=== PATIENT | female | born 1970 | race Caucasian/White ===

== ENCOUNTER 2017-08-29 11:59 | Emergency (ER) | payer BC ==
[2017-08-29 12:18] VITALS: BP 136/90
--- NOTE | 2017-08-29 13:55 | UC ---
Taqueria Mcleod Gabriel, scribed for Bob Fairchild MD on 08/29/17 at 1205 . Cardiac HPI - HPI Summary HPI Summary: This patient is a 47 year old F presenting to [facility] [place] with a chief complaint of CP that began this morning while she was eating breakfast and resolved 30 minutes later. She describes the sensation as feeling like there was a ton of bricks on her chest. She denies nausea, vomiting, diaphoresis, SOB, and dizziness. The pain was located in the middle of her chest and did no radiate. At this time there is no CP. Hx of chronic renal failure and hypothyroidism. - History of Current Complaint Stated Complaint: CHEST PAIN Time Seen by Provider: 08/29/17 12:01 Hx Obtained From: Patient Hx Last Menstrual Period: 12/08/2013 Onset/Duration: Lasting Hours, Still Present Timing: Constant Initial Severity: Moderate Current Severity: Moderate Pain Intensity: 6 Chest Pain Location: Diffuse Associated Signs & Symptoms: Positive: Negative - vomiting, diaphoresis, SOB, and dizziness. - Allergy/Home Medications Allergies/Adverse Reactions: Allergies Allergy/AdvReac Type Severity Reaction Status Date / Time No Known Allergies Allergy Verified 08/29/17 12:45 Home Medications: Home Medications Levothyroxine Sodium [Levoxyl] 1 tab PO DAILY 08/29/17 [History Confirmed ] PMH/Surg Hx/FS Hx/Imm Hx Endocrine History: Hypothyroidism GI/ History: Renal Disease Other History Of: Negative For: Hepatitis C, Anticoagulant Therapy - Surgical History Surgical History: None - Family History Known Family History: Negative: Renal Disease, Respiratory Disease, Seizure Disorder - Social History Alcohol Use: Occasionally Substance Use Type: None Smoking Status (MU): Never Smoked Tobacco Review of Systems All Other Systems Reviewed And Are Negative: Yes Physical Exam - Summary Physical Exam Summary: VITAL SIGNS: Reviewed. GENERAL: Patient is a well-developed and nourished female who is lying comfortable in the stretcher. Patient is not in any acute respiratory distress. HEAD AND FACE: Normocephalic EYES: PERRLA, EOMI x 2. EARS: Hearing grossly intact. MOUTH: Oropharynx within normal limits. NECK: Supple, trachea is midline, no adenopathy, no JVD, no carotid bruit. CHEST: Symmetric, no tenderness at palpation LUNGS: Clear to auscultation bilaterally. No wheezing or crackles. CVS: Regular rate and rhythm, S1 and S2 present, no murmurs or gallops appreciated. ABDOMEN: Soft, non-tender. Bowel sounds are normal. No abdominal abnormal pulsations. EXTREMITIES: Full ROM in all major joints, no edema, no cyanosis or clubbing. NEURO: Alert and oriented x 3. No acute neurological deficits. Speech is normal and follows commands. SKIN: Dry and warm Triage Information Reviewed: Yes Vital Signs: Initial Vital Signs Temp 99.3 F 08/29/17 12:04 Pulse 82 08/29/17 12:04 Resp 16 08/29/17 12:04 BP 123/83 08/29/17 12:04 Pulse Ox 98 08/29/17 12:04 Vital Signs Reviewed: Yes Diagnostics - EKG Cardiac Rate: NL Cardiac Rhythm: Sinus: Normal - at 84 BPM , Other Rhythm: Normal - no ST elevations, nml axis - Assessment/Plan Course Of Treatment: Patient here with atypical chest pain. Because of the presentation symptoms and her comorbidities I decided to recommend for the patient to go to the emergency department for further workup and management. At this point the patient is hemodynamically stable and she declines ambulance transport. - Clinical Impression Provider Diagnoses: CHEST PAIN Discharge - Sign-Out/Discharge Documenting (check all that apply): Discharge/Admit/Transfer - Discharge Plan Condition: Stable Disposition: HOME Patient Education Materials: Chest Pain (ED) Referrals: Abbie Bradley [Primary Care Provider] - Additional Instructions: Patient was discharged to the emergency department for further workup and assessment. The patient declined ambulance transportation. - Billing Disposition and Condition Condition: STABLE Disposition: HOME The documentation as recorded by the Taqueria chand Gabriel accurately reflects the service I personally performed and the decisions made by , Bob Fairchild MD.
== END 2017-08-29 12:18 | disposition home or self-care (01) ==
LOC: UCEAST 11:59
DX: R07.89 Other chest pain (principal); E03.9 Hypothyroidism, unspecified; N28.9 Disorder of kidney and ureter, unspecified
CPT/HCPCS: 93005; 99212; G0463

== ENCOUNTER → 2017-08-29 12:43 | Emergency (ER) | payer BC ==
[~2017-08-29 12:43] MED LIST: NS 0.9% 1000 ML* 1,000 ML IV SCH
--- NOTE | 2017-08-29 16:03 | RAD ---
INDICATION: Chest pain. COMPARISON: Comparison is made with a prior chest x-ray study from October 27, 2002. TECHNIQUE: A portable view of the chest was obtained. FINDINGS: Cardiac and mediastinal contours appear to be within normal limits. The lungs are are clear. No pleural effusion or pneumothorax is seen. IMPRESSION: NO EVIDENCE FOR ACUTE DISEASE.
[2017-08-29 16:11] LABS: ABS Basophils 0.1 10^3/ul (0-0.2); ABS Eosinophils 0.3 10^3/ul (0-0.6); ABS Lymphocytes 2.3 10^3/ul (1.0-4.8); ABS Monocytes 0.7 10^3/ul (0-0.8); ABS Neutrophils 6.4 10^3/ul (1.5-7.7); ABS Nucleated RBC 0 10^3/ul; Eosinophil % 2.7 % (0-6); Hematocrit 40 % (35-47); Hemoglobin 13.8 g/dl (12.0-16.0); Lymphocyte % 23.3 % (25-47); Mean Corpuscular HGB Conc 34 g/dl (31-36); Mean Corpuscular Hemoglobin 30 pg (27-31); Mean Corpuscular Volume 89 fL (80-97); Mean Platelet Volume 7.5 um3 (7.4-10.4); Nucleated Red Blood Cells % 0; Platelet Count 295 10^3/ul (150-450); Red Blood Count 4.56 10^6/ul (4.0-5.4); Red Cell Distribution Width 13 % (10.5-15); White Blood Count 9.7 10^3/ul (3.5-10.8)
[2017-08-29 16:31] LABS: EGFR Non-African American 50.5 (>60)
[2017-08-29 17:56] LABS: INR 0.88 (0.77-1.02)
[2017-08-29 18:34] VITALS: BP 121/80
--- NOTE | 2017-08-29 18:40 | ED ---
Laura Mcleod Tenzin, scribed for William Guadarrama MD on 08/29/17 at 1733 . HPI Chest Pain - HPI Summary HPI Summary: Pt is a 47 years old female sent to ED from [facility] with complaints of chest pain that started this morning. Prior to the onset, the pt was eating her bagel. She described that she felt as if the bagel was stuck in her throat. She also describes the chest pain as a hot flash. The patient also reports hand swelling a couple days ago that resolved. She denies pain when swallowing, nausea, and shortness of breath. The chest pain and the discomfort in her throat have mostly subsided now. She has a past medical history of thyroid and kidney disease. - History of Current Complaint Chief Complaint: EDChestPainROMI Time Seen by Provider: 08/29/17 16:10 Hx Obtained From: Patient Hx Last Menstrual Period: 08/21/17 Onset/Duration: Still Present Timing: Constant Initial Severity: Moderate Current Severity: Mild Pain Intensity: 3 Pain Scale Used: 0-10 Numeric Character: Other: - hot flashes Associated Signs and Symptoms: Positive: Chest Pain, Other: - feels as something is"stuck in her throat". Negative: Shortness of Breath, Nausea - Allergy/Home Medications Allergies/Adverse Reactions: Allergies Allergy/AdvReac Type Severity Reaction Status Date / Time No Known Allergies Allergy Verified 08/29/17 12:45 Home Medications: Home Medications Levothyroxine TAB* [Synthroid TAB*] 75 mcg PO DAILY 08/29/17 [History Confirmed 08/29/17] PMH/Surg Hx/FS Hx/Imm Hx Endocrine/Hematology History: Denies: Hx Diabetes, Hx Thyroid Disease Cardiovascular History: Denies: Hx Hypertension Respiratory History: Denies: Hx Asthma, Hx Chronic Obstructive Pulmonary Disease (COPD) GI History: Denies: Hx Ulcer - Cancer History Hx Chemotherapy: No Hx Radiation Therapy: No - Surgical History Surgery Procedure, Year, and Place: ectopic 2002. opherectomy, right sided Infectious Disease History: No Infectious Disease History: Denies: Hx Hepatitis, Hx Human Immunodeficiency Virus (HIV), Traveled Outside the [place] in Last 30 Days - Family History Known Family History: Negative: Blood Disorder - Social History Alcohol Use: Occasionally Substance Use Type: Reports: None Smoking Status (MU): Never Smoked Tobacco Review of Systems Positive: Other - feels as if "something is stuck in her throat" Positive: Chest Pain Negative: Shortness Of Breath Negative: Nausea All Other Systems Reviewed And Are Negative: Yes Physical Exam - Summary Physical Exam Summary: Appearance: The patient is well-nourished in no acute distress and in no acute pain. Skin: The skin is warm and dry and skin color reflects adequate perfusion. HEENT: The head is normocephalic and atraumatic. The pupils are equal and reactive. The conjunctivae are clear and without drainage. Nares are patent and without drainage. Mouth reveals moist mucous membranes and the throat is without erythema and exudate. The external ears are intact. The ear canals are patent and without drainage. The tympanic membranes are intact. Neck: the neck is supple with full range of motion and non-tender. There are no carotid bruits. There is no neck vein distension. Respiratory: Chest is non-tender. Lungs are clear to auscultation and breath sounds are symmetrical and equal. Cardiovascular: Heart is regular rate and rhythm. There is no murmur or rub auscultated. There is no peripheral edema and pulses are symmetrical and equal. Abdomen: The abdomen is soft and non-tender. There are normal bowel sounds heard in all four quadrants and there is no organomegaly palpated. Musculoskeletal: There is no back tenderness noted. Extremities are non-tender with full range of motion. There is good capillary refill. There is no peripheral edema or calf tenderness elicited. Neurological: Patient is alert and oriented to person, place and time. The patient has symmetrical motor strength in all four extremities. Cranial nerves are grossly intact. Deep tendon reflexes are symmetrical and equal in all four extremities. Psychiatric: The patient has an appropriate affect and does not exhibit any anxiety or depression. Triage Information Reviewed: Yes Vital Signs On Initial Exam: Initial Vitals Temp Pulse Resp BP Pulse Ox 98.1 F 84 16 136/80 97 08/29/17 12:45 08/29/17 12:45 08/29/17 12:45 08/29/17 12:45 08/29/17 12:45 Vital Signs Reviewed: Yes Diagnostics - Vital Signs Vital Signs Temp Pulse Resp BP Pulse Ox 08/29/17 12:45 98.1 F 84 16 136/80 97 - Laboratory Lab Results: Lab Results 08/29/17 08/29/17 08/29/17 Range/Units 16:00 16:00 16:00 WBC 9.7 (3.5-10.8) 10^3/ul RBC 4.56 (4.0-5.4) 10^6/ul Hgb 13.8 (12.0-16.0) g/dl Hct 40 (35-47) % MCV 89 (80-97) fL MCH 30 (27-31) pg MCHC 34 (31-36) g/dl RDW 13 (10.5-15) % Plt Count 295 (150-450) 10^3/ul MPV 7.5 (7.4-10.4) um3 Neut % (Auto) 66.1 (38-83) % Lymph % (Auto) 23.3 L (25-47) % [place] % (Auto) 6.9 (0-7) % Eos % (Auto) 2.7 (0-6) % Baso % (Auto) 1.0 (0-2) % Absolute Neuts (auto) 6.4 (1.5-7.7) 10^3/ul Absolute Lymphs (auto) 2.3 (1.0-4.8) 10^3/ul Absolute Monos (auto) 0.7 (0-0.8) 10^3/ul Absolute Eos (auto) 0.3 (0-0.6) 10^3/ul Absolute Basos (auto) 0.1 (0-0.2) 10^3/ul Absolute Nucleated RBC 0 10^3/ul Nucleated RBC % 0 Sodium 137 L (139-145) mmol/L Potassium 4.1 (3.5-5.0) mmol/L Chloride 104 (101-111) mmol/L Carbon Dioxide 26 (22-32) mmol/L Anion Gap 7 (2-11) mmol/L BUN 17 (6-24) mg/dL Creatinine 1.16 H (0.51-0.95) mg/dL Est GFR ( Amer) 65.0 (>60) Est GFR (Non-Af Amer) 50.5 (>60) BUN/Creatinine Ratio 14.7 (8-20) Glucose 93 (70-100) mg/dL Lactic Acid 1.4 (0.5-2.0) mmol/L Calcium 9.7 (8.6-10.3) mg/dL Magnesium 1.8 L (1.9-2.7) mg/dL Total Bilirubin 0.40 (0.2-1.0) mg/dL AST 16 (13-39) U/L ALT 12 (7-52) U/L Alkaline Phosphatase 84 (34-104) U/L Total Creatine Kinase 69 (10-223) U/L CK-MB (CK-2) 37.6 H (0.6-6.3) ng/mL Troponin I 0.00 (<0.04) ng/mL C-Reactive Protein 7.43 H (< 5.00) mg/L B-Natriuretic Peptide ( - 100) pg/mL Total Protein 7.9 (6.4-8.9) g/dL Albumin 4.2 (3.2-5.2) g/dL Globulin 3.7 (2-4) g/dL Albumin/Globulin Ratio 1.1 (1-3) Lipase 25 (11.0-82.0) U/L TSH 1.23 (0.34-5.60) mcIU/mL Beta HCG, Quant < 0.60 mIU/mL 08/29/17 08/29/17 Range/Units 16:00 16:00 WBC (3.5-10.8) 10^3/ul RBC (4.0-5.4) 10^6/ul Hgb (12.0-16.0) g/dl Hct (35-47) % MCV (80-97) fL MCH (27-31) pg MCHC (31-36) g/dl RDW (10.5-15) % Plt Count (150-450) 10^3/ul MPV (7.4-10.4) um3 Neut % (Auto) (38-83) % Lymph % (Auto) (25-47) % [place] % (Auto) (0-7) % Eos % (Auto) (0-6) % Baso % (Auto) (0-2) % Absolute Neuts (auto) (1.5-7.7) 10^3/ul Absolute Lymphs (auto) (1.0-4.8) 10^3/ul Absolute Monos (auto) (0-0.8) 10^3/ul Absolute Eos (auto) (0-0.6) 10^3/ul Absolute Basos (auto) (0-0.2) 10^3/ul Absolute Nucleated RBC 10^3/ul Nucleated RBC % Sodium (139-145) mmol/L Potassium (3.5-5.0) mmol/L Chloride (101-111) mmol/L Carbon Dioxide (22-32) mmol/L Anion Gap (2-11) mmol/L BUN (6-24) mg/dL Creatinine (0.51-0.95) mg/dL Est GFR ( Amer) (>60) Est GFR (Non-Af Amer) (>60) BUN/Creatinine Ratio (8-20) Glucose (70-100) mg/dL Lactic Acid (0.5-2.0) mmol/L Calcium (8.6-10.3) mg/dL Magnesium (1.9-2.7) mg/dL Total Bilirubin (0.2-1.0) mg/dL AST (13-39) U/L ALT (7-52) U/L Alkaline Phosphatase (34-104) U/L Total Creatine Kinase (10-223) U/L CK-MB (CK-2) (0.6-6.3) ng/mL Troponin I 0.01 (<0.04) ng/mL C-Reactive Protein (< 5.00) mg/L B-Natriuretic Peptide 10 ( - 100) pg/mL Total Protein (6.4-8.9) g/dL Albumin (3.2-5.2) g/dL Globulin (2-4) g/dL Albumin/Globulin Ratio (1-3) Lipase (11.0-82.0) U/L TSH (0.34-5.60) mcIU/mL Beta HCG, Quant mIU/mL Result Diagrams: 08/29/17 16:00 08/29/17 16:00 Lab Statement: Any lab studies that have been ordered have been reviewed, and results considered in the medical decision making process. - Radiology CXR Xray Interpretation: No Acute Changes - Impression: No evidence of acute disease. Dr. Guadarrama reviewed the report. Radiology Interpretation Completed By: Radiologist Chest Pain Course/Dx - Course Course Of Treatment: Ms. Bejarano had the sudden onset of chest pressure and fullness while eating a bagel this AM. She has had this happen many times but it was worse today. The symptoms gradually resolved over the day. Her ecg was fine and the initial trop was 0. Her CK was 69 with a CKMB of 37. This can be elevated in other conditions and a repeat trop was obtained which was still negative. This sounds GI and I recommended close F/U. - Diagnoses Provider Diagnoses: Chest pain Discharge - Sign-Out/Discharge Documenting (check all that apply): Discharge/Admit/Transfer - Discharge Plan Condition: Stable Disposition: HOME Patient Education Materials: Chest Pain (ED) Referrals: Abbie Bradley [Primary Care Provider] - 3 Days Additional Instructions: Follow up with your primary care physician in three days. Return to the emergency department for any new or worsening symptoms - Billing Disposition and Condition Condition: STABLE Disposition: HOME The documentation as recorded by the Laura chand Tenzin accurately reflects the service I personally performed and the decisions made by me, William Guadarrama MD.
== END | disposition home or self-care (01) ==
LOC: ED 12:43
DX: R07.89 Other chest pain (principal); R09.89 Other specified symptoms and signs involving the circulatory and respiratory systems
CPT/HCPCS: 36415; 71045; 80053; 82550; 82553; 83605; 83690; 83735; 83880; 84443; 84484; 84702; 85025; 85379; 85610; 85730; 86140; 93005; 99283